=== PATIENT | male | born 1985 | race Caucasian/White ===

== ENCOUNTER → 2020-03-20 | Outpatient (CLI) | payer BC, OTHER ==
[~2020-03-20] VITALS: Ht 185.4 cm; Wt 113.4 kg
== END ==
LOC: OPSV 11:00
DX: G35 Multiple sclerosis (principal)
CPT/HCPCS: 96365; J2930; J7070

== ENCOUNTER → 2020-03-21 | Outpatient (CLI) | payer BC, OTHER ==
[~2020-03-21] VITALS: Ht 185.4 cm; Wt 113.4 kg
== END ==
LOC: OPSV 07:00
DX: G35 Multiple sclerosis (principal)
CPT/HCPCS: 96365; J2930; J7070

== ENCOUNTER → 2020-03-22 | Outpatient (CLI) | payer BC, OTHER | LOC: OPSV 07:00 | DX: G35 Multiple sclerosis (principal) | CPT/HCPCS: 96365; J2930; J7070 ==

== ENCOUNTER → 2020-03-26 | Outpatient (CLI) | payer BC, OTHER | LOC: EMI 09:30 | DX: G35 Multiple sclerosis (principal); M21.372 Foot drop, left foot; R60.0 Localized edema; M51.36 Other intervertebral disc degeneration, lumbar region; M48.061 Spinal stenosis, lumbar region without neurogenic claudication; R90.89 Other abnormal findings on diagnostic imaging of central nervous system | CPT/HCPCS: 70553; 72148; 72156; A9577 ==